=== PATIENT | female | born 1950 | race Caucasian/White ===

== ENCOUNTER 2016-05-14 18:12 | Emergency (ER) | payer MEDICARE, OTHER ==
[~2016-05-14] VITALS: Ht 157.4 cm; Wt 90.3 kg
[~2016-05-14 18:12] MED LIST: CLARINEX5 MG PO; CLARITIN10 MG PO; MEDROL DOSEPAK4 MG PO; METFORMIN500 MG PO; SYNTHROID0.088 MG PO; VITAMIN B12500 MCG PO
[2016-05-14] MEDS ORDERED: EPIPEN 2-PAK1 MG/ML IJ (18:24)
[2016-05-14 18:43] LABS: BASO % 0.4 % (0.0-1.0); EOS # 0.1 10*3/uL (0.0-0.4); EOS % 0.8 % (1.0-4.0); HEMATOCRIT 38.1 % (37.0-47.0); HEMOGLOBIN 13.6 g/dl (12.0-16.0); LYMPH # 2.7 10*3/uL (1.3-4.4); LYMPH % 34.1 % (27.0-41.0); MEAN CELL VOLUME 88.8 fl (81.0-99.0); MEAN CORPUSCULAR HGB 31.7 pg (27.0-31.0); MEAN CORPUSCULAR HGB CONC 35.7 g/dl (33.0-37.0); MONO # 0.5 10*3/uL (0.1-1.0); MONO % 6.2 % (3.0-9.0); NEUT # 4.6 10*3/uL (2.3-7.9); NEUT % 58.2 % (47.0-73.0); PLATELET COUNT AUTOMATED 233 10*3/uL (130-400); RED BLOOD COUNT 4.29 10*6/uL (4.10-5.10); RED CELL DISTRI WIDTH 12.6 % (0-14.5); WHITE BLOOD COUNT 7.9 10*3/uL (4.8-10.8)
[2016-05-14 18:54] LABS: PROTHROMBIN TIME 10.4 SECONDS (9.0-12.4)
[2016-05-14 19:00] LABS: ALBUMIN 3.7 gm/dl (3.1-4.5); ALKALINE PHOSPHATASE 95 U/L (45-117); BILIRUBIN, TOTAL 0.6 mg/dl (0.2-1.0); BUN 9 mg/dl (7-24); C-REACTIVE PROTEIN 1.61 MG/DL (0-0.3); CARBON DIOXIDE 23 mmol/L (21-32); CHLORIDE 106 mmol/L (98-107); CPK 74 U/L (26-192); EST GLOM FILT AFRICAN AMERICAN > 60 ml/min; GLUCOSE 200 mg/dL (65-99); MAGNESIUM 1.9 mg/dL (1.5-2.1); POTASSIUM 3.5 mmol/L (3.5-5.1); SGOT/AST 14 IU/L (3-35); SGPT/ALT 18 U/L (12-78); SODIUM 142 mmol/L (136-145); TOTAL PROTEIN 7.3 gm/dL (6.4-8.2)
[2016-05-14 19:01] LABS: CKMB < 0.5 ng/ml (0.5-3.6); TROPONIN I < 0.015 ng/ml (<0.045)
[2016-05-14 20:40] LABS: LA>2 REFLEX 2 HR DRAW NOW
[2016-05-14 20:58] LABS: LA>2 RFLX FOLLOW UP AT 2 HRS 2.2 mmol/L (0.4-2.0)
[2016-05-14] MEDS ORDERED: PREDNISONE20 M1 PO (22:41)
[2016-05-14] MEDS ORDERED: ZITHROMAX250 MG PO (22:41)
[2016-05-14] MEDS ORDERED: VENTOLIN H0.09 MG/AC INH (22:41)
[2016-05-14 22:51] LABS: LA>2 REFLEX 4 HR DRAW NOW
== END 2016-05-14 22:29 | disposition home or self-care (01) ==
LOC: ED 18:12
PROVIDERS: Emergency Medicine
DX: T78.1XXA Other adverse food reactions, not elsewhere classified, initial encounter (principal); J20.9 Acute bronchitis, unspecified; Z88.0 Allergy status to penicillin; Z88.8 Allergy status to other drugs, medicaments and biological substances; Z91.040 Latex allergy status; X58.XXXA Exposure to other specified factors, initial encounter

== ENCOUNTER 2018-02-12 12:53 | Inpatient (IN) | payer MEDICARE ==
[~2018-02-12] VITALS: Ht 157.5 cm; Wt 88.9 kg
--- NOTE | ~2018-02-12 | EKG ---
[place], [place] ELECTROCARDIOGRAM REPORT NAME: ANTHONY RICHMOND UNIT #: [id number] ROOM: 525 DOCTOR: JOSE DRAFT REPORT BIRTHDATE: [birth year] [facility] Test Date: 2018-02-12 Test Time: 13:11:11 Pat Name: ANTHONY RICHMOND Department: Room: [facility] Gender: F [employer]: : 1950 Requested By: EVAN MORALES Order Number: [id number] Reading MD: Adam Lai MD Measurements Intervals [place] Rate: 74 P: 59 CT: 175 QRS: 37 QRSD: 82 T: -1 QT: 408 QTc: 453 Interpretive Statements Sinus rhythm Low voltage, precordial leads Baseline wander in lead(s) I,II,aVR,aVL Electronically Signed On 02-20-2018 17:36:01 PST by Adam Lai MD CM:EKGRPT:ELECTROCARDIOGRAM REPORT [id number] EVAN ESPINOSA DRAFT REPORT EVAN MORALES DO
[~2018-02-12 12:53] MED LIST changes: +EPIPEN 2-PAK1 MG/ML IJ; +PREDNISONE20 M1 PO; +VENTOLIN H0.09 MG/AC INH; +ZITHROMAX250 MG PO
[2018-02-12 12:55] VITALS: BP 172/83
[2018-02-12] MEDS ORDERED: B121000 MCG/1 IM (13:49)
[2018-02-12 13:55] LABS: BASO % 0.4 % (0.0-1.0); EOS # 0.1 10*3/uL (0.0-0.4); EOS % 0.7 % (1.0-4.0); HEMATOCRIT 42.6 % (37.0-47.0); HEMOGLOBIN 14.8 g/dl (12.0-16.0); LYMPH # 1.4 10*3/uL (1.3-4.4); LYMPH % 15.5 % (27.0-41.0); MEAN CELL VOLUME 89.3 fl (81.0-99.0); MEAN CORPUSCULAR HGB CONC 34.7 g/dl (33.0-37.0); MEAN PLATELET VOLUME 9.6 fl (9.6-12.3); MONO # 0.5 10*3/uL (0.1-1.0); MONO % 5.6 % (3.0-9.0); NEUT # 7.1 10*3/uL (2.3-7.9); NEUT % 77.5 % (47.0-73.0); PLATELET COUNT AUTOMATED 254 10*3/uL (130-400); RED BLOOD COUNT 4.77 10*6/uL (4.10-5.10); RED CELL DISTRI WIDTH 12.4 % (0-14.5); WHITE BLOOD COUNT 9.2 10*3/uL (4.8-10.8)
[2018-02-12 14:06] LABS: ACT PARTIAL THROMBO TIME 22.7 SECONDS (20.8-31.5)
[2018-02-12 14:07] LABS: BILIRUBIN NEGATIVE (NEGATIVE); BLOOD NEGATIVE (NEGATIVE); CLARITY CLEAR (CLEAR); COLOR YELLOW (YELLOW); GLUCOSE NEGATIVE (NEGATIVE); KETONE NEGATIVE (NEGATIVE); LEUKO ESTERASE NEGATIVE (NEGATIVE); NITRITE NEGATIVE (NEGATIVE); PH 5.5 (5.0-9.0); SPECIFIC GRAVITY 1.015 (1.005-1.030); UROBILINOGEN 0.2 E.U./dl (0.2-1.0)
[2018-02-12 14:14] LABS: BACTERIA TRACE
[2018-02-12 14:15] LABS: ALBUMIN 3.6 gm/dl (3.1-4.5); ALKALINE PHOSPHATASE 97 U/L (45-117); BUN 12 mg/dl (7-24); CHLORIDE 103 mmol/L (98-107); CREATININE 0.81 mg/dL (0.55-1.02); LIPASE 89 U/L (73-393); SGOT/AST 18 IU/L (3-35); SGPT/ALT 19 U/L (12-78); SODIUM 138 mmol/L (136-145); TOTAL PROTEIN 7.4 gm/dL (6.4-8.2)
[2018-02-12 14:16] LABS: TROPONIN I < 0.015 ng/ml (<0.045)
[2018-02-12 15:10] VITALS: BP 135/68
--- NOTE | 2018-02-12 15:13 | NUR ---
PT TAKEN TO CT SCAN VIA TECH AND CART.
[2018-02-12 16:27] VITALS: BP 132/66
[2018-02-12 16:56] VITALS: BP 134/79
[2018-02-12 17:15] VITALS: BP 152/58
--- NOTE | 2018-02-12 17:15 | NUR ---
A 67YO FEMALE, admitted to , under the services of JONATHAN Tabares DO with a diagnosis of NEAR SYNCOPE. Chief complaint is DIZZINESS WITH NAUSEA AND VISION CHANGES WITH POSITION CHANGES FOR PAST TWO DAYS. Patient arrived via stretcher from ER. Monitor applied. Initial assessment completed. Vital signs taken and recorded. JONATHAN TABARES DO notified of admission to the unit. Orders received. See assessment for past medical history, medications and allergies. Patient and/or family oriented to unit. [facility]. Clothing/patient valuable form completed. CATRACHITO BAINS
--- NOTE | 2018-02-12 17:54 | NUR ---
DR. GARAY NOTIFIED OF THE CONSULT.
--- NOTE | 2018-02-12 17:55 | NUR ---
MED REC UPDATED/CORRECTED USING INFORMATION PROVIDED BY THE PATIENT.
[2018-02-12 20:00] VITALS: BP 140/71
[2018-02-13] VITALS: BP 94/65
[2018-02-13 06:18] LABS: BASO % 0.4 % (0.0-1.0); EOS # 0.1 10*3/uL (0.0-0.4); EOS % 0.7 % (1.0-4.0); HEMOGLOBIN 13.9 g/dl (12.0-16.0); LYMPH # 1.7 10*3/uL (1.3-4.4); LYMPH % 25.3 % (27.0-41.0); MEAN CELL VOLUME 90.1 fl (81.0-99.0); MEAN CORPUSCULAR HGB 31.3 pg (27.0-31.0); MEAN CORPUSCULAR HGB CONC 34.8 g/dl (33.0-37.0); MEAN PLATELET VOLUME 9.9 fl (9.6-12.3); MONO # 0.5 10*3/uL (0.1-1.0); MONO % 7.2 % (3.0-9.0); NEUT # 4.5 10*3/uL (2.3-7.9); NEUT % 66.3 % (47.0-73.0); PLATELET COUNT AUTOMATED 243 10*3/uL (130-400); RED BLOOD COUNT 4.44 10*6/uL (4.10-5.10); RED CELL DISTRI WIDTH 12.6 % (0-14.5); WHITE BLOOD COUNT 6.8 10*3/uL (4.8-10.8)
[2018-02-13 06:38] LABS: BUN 12 mg/dl (7-24); CHLORIDE 105 mmol/L (98-107); CHOLESTEROL 198 mg/dL (<200); CREATININE 0.77 mg/dL (0.55-1.02); POTASSIUM 4.1 mmol/L (3.5-5.1); SODIUM 139 mmol/L (136-145); TRIGLYCERIDES 193 mg/dl (<150); VLDL CHOLESTEROL 39 mg/dL (6-40)
[2018-02-13 06:47] LABS: FREE T4 1.18 ng/dl (0.76-1.46); HDL CHOLESTEROL 41 mg/dl (40-60); LDL CHOLESTEROL 118 mg/dL (9-159)
[2018-02-13 08:00] VITALS: BP 118/68; BP 123/67
[2018-02-13 09:12] LABS: VITAMIN D, 25-HYDROXY 23.3 ng/mL (30-100)
--- NOTE | 2018-02-13 11:30 | NUR ---
PATIENT TO CARDIAC REHAB FOR STRESS TEST
--- NOTE | 2018-02-13 11:54 | NUR ---
Certified Recreational Therapist in to talk to patient. Patient states lives at HOME with ALONE. There are NO steps in the home. Physician: FREDDIE Pharmacy: [facility] Home health services: NONE Patient's level of ADLs: INDEPENDENT Patient has working utilities: YES DME: NONE Follow-up physician's appointment after d/c: WILL BE MADE BY HOSPITALIST NURSE JARED ON DISCHARGE Does patient want to access PORTAL?: NO Discharge plan PT LIVES AT HOME ALONE AND IS INDEPENDENT IN CARE. PT DENIES ANY HOME NEEDS AT THIS TIME. WILL CONTINUE TO FOLLOW.. VARSHA H[place]
--- NOTE | 2018-02-13 11:58 | NUR ---
INFORMED CONSENT OBTAINED FOR A LEXISCAN STRESS TEST WITH DR. FARLEY. RESTING EKG NSR, HT OF 77 AND A BP OF 94/62. POX 98% VIA RA AND CLEAR BREATH SOUNDS. COMPLETED ONE MINUTE OF A LEXISCAN PROTOCOL RECEIVING LEXISCAN 0.4 MG OVER 10 SECONDS. DEVELOPED SOB AND A HEADACHE THAT WAS RELIEVED IN RECOVERY. HAD A PEAK HT RT OF 127, WITH A BP OF 134/78. LAST RECEOVERY HT RT OF 120, WITH A BP OF 120/72. AWAITING NUCLEAR IMAGING IN STABLE CONDITION.
[2018-02-13 12:00] VITALS: BP 137/94
[2018-02-13 16:00] VITALS: BP 118/68
--- NOTE | 2018-02-13 17:02 | NUR ---
PER DR. FARLEY, PATIENT OK TO DISCHARGE FROM CARDIAC STANDPOINT. DR. FITZGERALD NOTIFIED; PATIENT TO STAY ONE MORE NIGHT D/T INTERMITTENT DIZZINESS. IVF CONTINUING ORDERED.
[2018-02-13 20:00] VITALS: BP 109/50
[2018-02-14] VITALS: BP 116/52
--- NOTE | 2018-02-14 01:49 | NUR ---
24 HR chart check completed.
[2018-02-14 08:15] VITALS: BP 108/60
[2018-02-14] MEDS ORDERED: PREDNISONE10 MG PO (09:10)
--- NOTE | 2018-02-14 09:52 | NUR ---
Discharge instructions reviewed with patient. Patient receptive and verbalizes understanding. Follow-up care arranged. Written instructions given to patient. PATIENT DISCHARGED TO [facility], [facility], FOR TRANSPORT HOME BY PRIVATE VEHICLE WITH SISTER. CATRACHITO BAINS
== END 2018-02-14 09:52 | disposition home or self-care (01) | DRG 149 ==
LOC: ED 12:53 → 5E 15:58 → EDHOLD 15:58 → 5E 16:26
PROVIDERS: Emergency Medicine; Student in an Organized Health Care Education/Training Program; ADMIT Internal Medicine
DX: H81.10 Benign paroxysmal vertigo, unspecified ear (principal); I50.32 Chronic diastolic (congestive) heart failure; E03.9 Hypothyroidism, unspecified; M79.602 Pain in left arm; R79.82 Elevated C-reactive protein (CRP); J30.2 Other seasonal allergic rhinitis; D72.810 Lymphocytopenia; E53.8 Deficiency of other specified B group vitamins; E11.65 Type 2 diabetes mellitus with hyperglycemia; E55.9 Vitamin D deficiency, unspecified; E78.1 Pure hyperglyceridemia; I11.0 Hypertensive heart disease with heart failure; Z88.0 Allergy status to penicillin; Z91.040 Latex allergy status; Z88.8 Allergy status to other drugs, medicaments and biological substances; Z79.899 Other long term (current) drug therapy; Z90.710 Acquired absence of both cervix and uterus; Z90.49 Acquired absence of other specified parts of digestive tract; Z90.722 Acquired absence of ovaries, bilateral; Z82.49 Family history of ischemic heart disease and other diseases of the circulatory system; Z83.3 Family history of diabetes mellitus; Z91.018 Allergy to other foods

== ENCOUNTER → 2021-12-26 | Outpatient (CLI) | payer MEDICARE ==
[~2021-12-26] MED LIST changes: +B121000 MCG/1 IM; +PREDNISONE10 MG PO
== END | disposition home or self-care (01) ==
LOC: RESCLI 02:33
PROVIDERS: ATTEND Internal Medicine
DX: J45.20 Mild intermittent asthma, uncomplicated (principal); E11.9 Type 2 diabetes mellitus without complications; E03.9 Hypothyroidism, unspecified; E78.5 Hyperlipidemia, unspecified; E53.8 Deficiency of other specified B group vitamins; Z88.0 Allergy status to penicillin; Z91.048 Other nonmedicinal substance allergy status; Z82.49 Family history of ischemic heart disease and other diseases of the circulatory system; Z90.49 Acquired absence of other specified parts of digestive tract; Z90.710 Acquired absence of both cervix and uterus; Z98.890 Other specified postprocedural states; Z79.84 Long term (current) use of oral hypoglycemic drugs; Z79.899 Other long term (current) drug therapy

== ENCOUNTER → 2023-03-02 | Outpatient (CLI) | payer MEDICARE | END | disposition home or self-care (01) | LOC: CANPRECLI → RESCLI 02:46 | PROVIDERS: ATTEND Internal Medicine | DX: Z53.9 Procedure and treatment not carried out, unspecified reason (principal) ==